=== PATIENT | male | born 1995 | race Caucasian/White ===

== ENCOUNTER 2019-08-21 22:18 | Emergency (ER) | payer SELFPAY ==
[2019-08-21 22:18] VITALS: BP 153/77; PULSE 109; RESP 16; TEMP 37.1; O2SAT 100; BMI 17.4
--- NOTE | 2019-08-22 00:44 | ED.DCSUM_ITS ---
History of Present Illness Chief Complaint: Abscess Informant: Patient Narrative: Stated since yesterday he developed an abscess to his left upper back. It is tender to palpation. He is never had this before. Denies IV drug use. Denies any injury to this area. Current severity is mild. No history of diabetes. No home treatment. Comes in for [place]. Past Medical History - Allergies and Home Meds Allergies/Adverse Reactions: Allergies Penicillins Allergy (Verified 08/21/19 22:21) Unknown Primary Care Physician: Care Physician,No Primary [Primary Care Provider] - Prior records reviewed: Yes Past Medical History: None Surgical History: no surgical history Smoking Status: Current every day smoker Alcohol: None Drugs: None Review of Systems General: Denies: Chills, Fever, Sweats Eyes: Denies: Visual changes - bilaterally, Diplopia ENT: Denies: Rhinorrhea, Sore throat Cardiovascular: Denies: Chest pain, Palpitations Respiratory: Denies: Dyspnea, Cough, Dyspnea on exertion Gastrointestinal: Denies: Abdominal pain, Nausea, Vomiting, Diarrhea, Melena, Hematochezia Genitourinary: Denies: Dysuria, Hematuria, Frequency Musculoskeletal: Denies: Back pain, Extremity Pain Skin: Reports: Abscess. Denies: Rash, Wounds Neurological: Denies: Headache, Weakness, Numbness Physical Exam Vital Signs/Narrative: Vital Signs Temp Pulse Resp BP Pulse Ox 08/21/19 22:18 98.8 F 109 H 16 153/77 H 100 General: Well nourished, Well developed, No Acute Distress Head: Normocephalic, Atraumatic Eyes: Perrl, EOMI ENT: Moist mucous membranes, No rhinorrhea Neck: Supple, Nontender Cardiovascular: Regular rate, Regular rhythm, No murmurs Respiratory: No distress, CTA bilaterally, Chest nontender Abdomen: Soft, Nontender, Nondistended, Normal bowel sounds Back: Nontender, Normal Inspection Extremities: Nontender, No edema Skin: Normal color, No rash, - - Left upper back just above the scapula is a quarter sized fluctuant abscess. No surrounding cellulitis Neurological: Alert, Oriented x3, Cranial nerves II-XII grossly intact, Normal Strength, Normal Sensation Psychological: Normal affect, Normal Mood Diagnostic/Tx/Re-eval - Medical Decision Making Patient consented to incision and drainage. The wound was washed with chlorhexidine. 4 cc of lidocaine was instilled into the wound. An 11 blade was used to barbara the wound approximately 50% the diameter with good drainage. At this time I do not feel the patient needs antibiotics. He will continue symptomatic treatment. It was washed with saline. No loculations to break up. To superficial pack. ED Disposition - Plan for ED Patient: Disposition: Home or Assisted Living Diagnosis: Skin abscess Instructions: ABSCESS, Incision and Drainage Referrals: Owen Bryant DO [NON CLINICAL AFFILIATE] -
[2019-08-22 01:32] VITALS: BP 118/84; PULSE 86; RESP 18; O2SAT 100
== END 2019-08-22 01:33 | disposition home or self-care (01) ==
PROVIDERS: Emergency Provider Emergency Medicine
DX: L02.212 Cutaneous abscess of back [any part, except buttock and flank] (principal); F17.200 Nicotine dependence, unspecified, uncomplicated; Z88.0 Allergy status to penicillin
CPT/HCPCS: 10060; 99283

== ENCOUNTER 2019-08-28 07:49 | Emergency (ER) | payer SELFPAY ==
[2019-08-28 07:52] VITALS: BP 150/80; PULSE 87; RESP 16; TEMP 36.7; O2SAT 98; BMI 19.6
--- NOTE | 2019-08-28 08:04 | ED.VISSUMM ---
- ER Visit Summary Date of Service: 08/28/19 Chief Complaint: Abscess History of Present Illness: The patient is a 24 M who returns today for recheck of his abscess. He was seen here a week ago and had incision and drainage. He is not placed on antibiotics at that time. He is concerned that is not healing properly. It still mildly tender. There is no current drainage. He is never had abscesses before. He denies any fevers. Physical Examination: Vital signs reviewed. Back exam reveals a 2 x 2 centimeter healing abscess on the left upper back. No drainage. Mildly tender. There is some mild surrounding erythema. Test Results: None performed Emergency Department Course and Treatment: Patient will be placed on Bactrim. It is not fluctuant. I do not feel it needs to be drained again. He will use warm compresses and continue the course of Bactrim. He will follow-up with her PCP Treatment Plan: [] Disposition: Discharge Impression: Abscess of back, subsequent visit This note was generated with [employer] dictation software. It may contain incorrect words, spelling, and punctuation that were not noted in review of the chart prior to signing ED Disposition - Plan for ED Patient: Referrals: Care Physician,No Primary [Primary Care Provider] -
--- NOTE | 2019-08-28 08:05 | ED.DEP ---
ED Disposition - Plan for ED Patient: Disposition: Home or Assisted Living Instructions: ABSCESS, Antiobiotic Treatment Only Prescriptions: Smz/Tmp Ds [Bactrim Ds] 1 tab PO BID #20 tab Prescription Printed Referrals: Care Physician,No Primary [Primary Care Provider] -
[2019-08-28] MEDS: Smz/Tmp Ds Tablet 1 TABLET PO (08:10)
== END 2019-08-28 08:14 | disposition home or self-care (01) ==
LOC: ED 08:10
PROVIDERS: Emergency Provider Emergency Medicine
DX: L02.212 Cutaneous abscess of back [any part, except buttock and flank] (principal); Z72.0 Tobacco use
CPT/HCPCS: 99283

== ENCOUNTER 2020-05-28 17:00 | Emergency (ER) | payer SELFPAY ==
[2020-05-28 17:01] VITALS: BP 136/86; PULSE 108; RESP 18; TEMP 36.7; O2SAT 100; BMI 20.3
--- NOTE | 2020-05-28 19:40 | ED.VISSUMM ---
- ER Visit Summary Date of Service: 05/28/20 Chief Complaint: Cyst on neck History of Present Illness: The patient is a 24 M with no primary care physician. He reports that he is had a cyst on the left side of his neck for months. The area became red and painful 4 days ago. He describes a dull, aching pain is 6 out of 10 at worst and 3-10 currently. Is worsened by touching it. Is not taken anything for pain. He denies any constitutional symptoms. No fever, chills, nausea, or vomiting. Physical Examination: Vitals: Stable. Afebrile. General: Well-nourished and well-developed. Head: Normocephalic atraumatic. Neck: Supple, no lymphadenopathy. No JVD. 3 cm erythematous area with central fluctuance over the left lateral neck. There is also a 1.5 cm sebaceous cyst over the anterior portion of his left trapezius. Cardiovascular: Regular rate and rhythm. No murmurs. Respiratory: No respiratory distress. Clear to auscultation bilaterally. Abdominal: Soft, nontender, nondistended, normal bowel sounds. No guarding, rebound, or peritoneal signs. Back: Nontender. Extremities: Nontender, no edema. Skin: Normal color, no rash. Neurologic: Alert and oriented ?3. Cranial nerves II through XII are intact. Normal strength and sensation. Psych: Normal affect. Emergency Department Course and Treatment: Patient was given a dose of morphine IM. He had an I&D performed. He tolerated this well. 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 He will be discharged on Bactrim. Instructed to follow-up with Dr. Favio Belcher in 3 to 5 days for a wound check. I did discuss with him that I was not able to completely remove the capsule from the sebaceous cyst and it may recur. Return to the emergency department for any worsening symptoms. Disposition: To home in improved and stable condition. Impression: 1. Sebaceous cyst on neck. 2. Incision and drainage. Procedure Note: Abscess was cleansed with chlorhexidine soap. Anesthetized with 1% lidocaine without epinephrine. An incision was made with an 11 scalpel blade. A moderate amount of caseous material and a small amount of pus was drained. Curved hemostats were used to to try to remove the capsule. Unfortunately I do not think this was completely removed. The wound was copiously irrigated with normal saline. It was loosely packed with iodoform gauze. The patient tolerated it well. This note was generated with [employer] dictation software. It may contain incorrect words, spelling, and punctuation that were not noted in review of the chart prior to signing ED Disposition - Plan for ED Patient: Instructions: ED Epidermoid Cyst Infect I and D Prescriptions: Smz/Tmp Ds [Bactrim Ds] 1 tab PO BID #14 tab Prescription Printed Referrals: Favio Purcell MD [STAFF PHYSICIAN] - 3-5 Days
[2020-05-28] MEDS: Diphth,Pertuss(Acell),Tet Vac 0.5 ML Vial IM (20:08)
[2020-05-28] MEDS: morphine 8 MG/ML Syringe IM (20:09)
[2020-05-28] MEDS: Smz/Tmp Ds Tablet 1 TABLET PO (21:03)
[2020-05-28 21:05] VITALS: RESP 16
== END 2020-05-28 21:25 | disposition home or self-care (01) ==
LOC: ED 19:00
PROVIDERS: Emergency Provider Emergency Medicine
DX: L72.3 Sebaceous cyst (principal); F17.200 Nicotine dependence, unspecified, uncomplicated
CPT/HCPCS: 10060; 90715; 96372; 99283

== ENCOUNTER 2020-07-02 14:30 | Emergency (ER) | payer SELFPAY ==
[2020-07-02 14:31] VITALS: BP 156/62; PULSE 103; RESP 18; TEMP 36.5; BMI 20.2
--- NOTE | 2020-07-02 16:24 | ED.DCSUM_ITS ---
History of Present Illness Chief Complaint: Cellulitis Informant: Patient Narrative: Patient is a 27-year-old previously healthy male who presents to the emergency department for abscess to his left neck/trapezius area. He states that this is been an ongoing issue for a few months. He had it drained 1 month ago and was on Bactrim for it. It recently got larger over the past week. Today it started to drain. Denies any systemic symptoms including any fever/chills. No nausea/vomiting. No neck pain or stiffness. He denies any known history of MRSA. Denies any IV drug abuse. Past Medical History - Allergies and Home Meds Allergies/Adverse Reactions: Allergies Penicillins Allergy (Verified 07/02/20 16:30) Unknown Primary Care Physician: Care Physician,No Primary [Primary Care Provider] - Jorge Ortega [[facility]] - 3-5 Days Prior records reviewed: Yes Past Medical History: None Surgical History: no surgical history Smoking Status: Current every day smoker Review of Systems All systems negative except as indicated General: Denies: Chills, Fever Eyes: Denies: Diplopia Cardiovascular: Denies: Chest pain Respiratory: Denies: Dyspnea, Cough Gastrointestinal: Denies: Abdominal pain, Nausea, Vomiting Musculoskeletal: Denies: Myalgias, Neck pain, Back pain Skin: Reports: Abscess Neurological: Denies: Headache, Weakness, Parasthesia, Numbness Physical Exam Vital Signs/Narrative: Vital Signs Temp Pulse Resp BP 07/02/20 14:31 97.7 F L 103 H 18 156/62 H Inital Vital Signs reviewed: Yes General: Well nourished, Well developed Head: Normocephalic, Atraumatic Eyes: Perrl, EOMI ENT: Moist mucous membranes Neck: Supple, Nontender Cardiovascular: Regular rate, Regular rhythm Respiratory: No distress, CTA bilaterally Abdomen: Soft, Nontender Back: Normal Inspection Extremities: Nontender, No edema Skin: Normal color, No rash, - - Abscess/induration over the left neck. There is a second spot over the left trapezius muscle. Bedside ultrasound did not show a large fluid collection. Neurological: Alert, Oriented x3, Cranial nerves II-XII grossly intact, Normal Sensation Diagnostic/Tx/Re-eval - Medical Decision Making Patient presents to the ED for abscess to the left neck. Has already started draining. No large fluid collection seen on ultrasound. Will treat with antibiotics at this time. He states he does have an allergy to penicillin that his mother told him about so he does not know his reaction. Will place him on Keflex as he was previously on on Bactrim only. We will have him follow-up with a PCP. He does not have one so he was given 1 from the no doc list. Warning signs and symptoms for which to return to the emergency department occluding any worsening swelling, developing any systemic symptoms are reviewed. He understands and is agreeable this plan. Discharged home in stable condition. All questions answered. ED Disposition - Plan for ED Patient: Disposition: Home or Assisted Living Diagnosis: Abscess Instructions: ED Abscess Antibiotic Treatment Only Prescriptions: Smz/Tmp Ds [Bactrim Ds] 1 tab PO BID #14 tab Transmission Status: Received by [facility] #[facility] Cephalexin [Keflex] 500 mg PO TID 7 Days #21 cap Transmission Status: Received by [facility] Referrals: Care Physician,No Primary [Primary Care Provider] - Jorge Ortega [[facility]] - 3-5 Days
[2020-07-02 16:37] VITALS: BP 127/88; PULSE 72; RESP 18; O2SAT 97
== END 2020-07-02 16:52 | disposition home or self-care (01) ==
PROVIDERS: Emergency Provider Emergency Medicine
DX: L02.11 Cutaneous abscess of neck (principal); F17.200 Nicotine dependence, unspecified, uncomplicated
CPT/HCPCS: 99282